=== PATIENT | male | born 1980 | race Caucasian/White ===

== ENCOUNTER 2020-12-18 17:23 | Emergency (ER) | payer SELFPAY ==
[2020-12-18] MEDS ORDERED: THIAMINE 200 MG/2 ML INJ ONE (20:45)
[2020-12-18] MEDS ORDERED: MULTIVITAMINS 10 ML VIAL (INJ) IV ONE (20:46)
[2020-12-18] MEDS ORDERED: FAMOTIDINE 20 MG/2 ML VIAL IV ONE (20:46)
[2020-12-18] MEDS ORDERED: NA CHLORIDE 0.9% 1,000 ML ONE (20:47)
[2020-12-18] MEDS ORDERED: FOLIC ACID 5 MG/ML VIAL ONE (20:47)
[2020-12-18 20:56] LABS: Absolute Lymphocytes (CBC) 1.8 K/uL (0.7-4.9); Basophils % 0.6 % (0-1.3); Hematocrit 47.2 % (39.6-49.0); Lymphocytes % 34.5 % (15.3-44.8); MPV 8.7 fL (7.6-11.3); RBC Red Blood Cell Count 5.03 M/uL (4.33-5.43)
--- NOTE | 2020-12-18 21:05 | RAD REPORT ---
EXAM DESCRIPTION: Syed Single View12/18/2020 8:54 pm CLINICAL HISTORY: cough COMPARISON: none FINDINGS: The lungs appear clear of acute infiltrate. The heart is normal size IMPRESSION: No acute abnormalities displayed
[2020-12-18 21:06] LABS: Protime INR 1.15
[2020-12-18] MEDS ORDERED: LORazepam 2 MG/ML VIAL ONE (21:19)
[2020-12-18 21:42] LABS: Albumin 3.7 g/dL (3.4-5.0); Alkaline Phosphatase 144 U/L (45-117); BUN Blood Urea Nitrogen 9 mg/dL (7-18); Bicarbonate 25 mmol/L (21-32); Bilirubin Direct 1.7 mg/dL (0-0.2); Bilirubin Total 2.4 mg/dL (0.2-1.0); Glucose Level 136 mg/dL (74-106); Lipase 523 U/L (73-393); NT PRO-BNP 20 pg/mL (<125); Sodium Level 135 mmol/L (136-145); Troponin (Emerg Dept Use Only) < 0.02 ng/mL (0.0-0.045)
[2020-12-18 21:45] LABS: Potassium 3.8 mmol/L (3.5-5.1)
[2020-12-18 21:46] LABS: ALT/SGPT 371 U/L (12-78); AST/SGOT 609 U/L (15-37)
[2020-12-18 21:47] LABS: Barbiturates NEGATIVE (NEGATIVE); Benzodiazepines NEGATIVE (NEGATIVE); Cocaine NEGATIVE (NEGATIVE); METHAMPHETAM NEGATIVE (NEGATIVE); Methadone NEGATIVE (NEGATIVE); Opiates NEGATIVE (NEGATIVE); Phencyclidine NEGATIVE (NEGATIVE); THC Cannibis NEGATIVE (NEGATIVE)
[2020-12-18 22:06] LABS: Urine Blood NEGATIVE (NEG); Urine Glucose NEGATIVE (NEG); Urine Protein NEGATIVE (NEG); Urine pH 7.5 (5.0-7.0)
--- NOTE | 2020-12-18 22:25 | ER ---
Nurse's Notes [facility] Name: Daphne Masters Age: 40 yrs Sex: Male : 1980 Arrival Date: 12/18/2020 Time: 17:25 Bed 23 Private MD: Diagnosis: Alcohol abuse counseling and surveillance;Alcohol abuse, uncomplicated;Alcohol abuse with intoxication;Alcoholic cirrhosis of liver Presentation: 12/18 17:47 Chief complaint: Patient states: Drinking heavier than usual for 2 months. Wants to get ll1 to a good rehab. + N/V. Last drink "2 [place]ball" at 8 am. Wants help, doing it himself isn't working. Coronavirus screen: Client denies travel out of the [place] in the last 14 days. At this time, the client does not indicate any symptoms associated with coronavirus-19. Ebola Screen: Patient denies travel to an Ebola-affected area in the 21 days before illness onset. Initial Sepsis Screen: Does the patient meet any 2 criteria? HR > 90 bpm. No. Patient's initial sepsis screen is negative. Does the patient have a suspected source of infection? Yes: Acute abdominal pain. Risk Assessment: Do you want to hurt yourself or someone else? Patient reports no desire to harm self or others. Onset of symptoms was December 18, 2020. 17:47 Method Of Arrival: Ambulatory ll1 17:47 Acuity: ESCOBAR 3 ll1 Historical: - Allergies: 17:50 No Known Allergies; ll1 - Home Meds: 22:19 Celexa 40 mg Oral tab 1 tab once daily [Active]; Vitamin B-1 (mononitrate) oral 250 mg sf tab oral 1 tab daily [Active]; milk thistle oral oral daily [Active]; multivitamin oral tab 1 tab daily [Active]; - PMHx: 17:50 Alcoholism; ll1 - PSHx: 17:50 None; ll1 - Immunization history:: Flu vaccine is not up to date. - Social history:: Smoking status: Patient denies any tobacco usage or history of. - Family history:: not pertinent. Screenin:20 Abuse screen: Denies threats or abuse. Denies injuries from another. Nutritional sf screening: No deficits noted. Tuberculosis screening: No symptoms or risk factors identified. Never had TB. Possible symptoms: None Risk factors: None. Fall Risk None identified. No fall in past 12 months (0 pts). No secondary diagnosis (0 pts). IV access (20 points). Ambulatory Aid- None/Bed Rest/Nurse Assist (0 pts). Gait- Normal/Bed Rest/Wheelchair (0 pts) Mental Status- Oriented to own ability (0 pts). Total Ulrich Fall Scale indicates No Risk (0-24 pts). Assessment: 20:20 General: Appears in no apparent distress. comfortable, Behavior is cooperative, sf anxious. Pain: Denies pain. Neuro: No deficits noted. Level of Consciousness is awake, alert, obeys commands, Oriented to person, place, time, situation, Appropriate for age CIWA-Ar: Nausea and Vomiting (5), Tremor (1), Paroxysmal Sweats (0), Tactile Disturbance (0), Auditory Disturbances (0), Visual Disturbances (0), Anxiety (3), Agitation (3), Headache (0), Orientation (0); TOTAL CIWA-Ar: 12. Cardiovascular: No deficits noted. Patient's skin is warm and dry. Rhythm is sinus rhythm. Respiratory: No deficits noted. Airway is patent Respiratory effort is even, unlabored, Respiratory pattern is regular, symmetrical. GI: Abdomen is non-distended, Abd is soft and non tender X 4 quads. Reports nausea, normal bowel habits, vomiting, Patient currently denies abdominal pain. : No signs and/or symptoms were reported regarding the genitourinary system. 22:14 Reassessment: Patient appears in no apparent distress at this time. Patient and/or sf family updated on plan of care and expected duration. Pain level reassessed. Patient is alert, oriented x 3, equal unlabored respirations, skin warm/dry/pink. CIWA-Ar: Nausea and Vomiting (1), Tremor (1), Paroxysmal Sweats (0), Tactile Disturbance (0), Auditory Disturbance (0), Visual Disturbance (0), Anxiety (1), Agitation (1), Headache (0), Orientation (0); TOTAL CIWA-Ar: 4 Patient denies pain at this time. Patient states feeling better. Patient states symptoms have improved. 23:08 Reassessment: Patient appears in no apparent distress at this time. Patient and/or sf family updated on plan of care and expected duration. Pain level reassessed. Patient is alert, oriented x 3, equal unlabored respirations, skin warm/dry/pink. Patient denies pain at this time. Vital Signs: 17:47 BP 130 / 89; Pulse 101; Resp 18; Temp 97.9; Pulse Ox 98% ; Weight 90.72 kg; Height 6 ll1 ft. 1 in. (185.42 cm); Pain 5/10; 20:43 BP 124 / 86; Pulse 79; Resp 18; Pulse Ox 98% ; sf 21:00 BP 129 / 84; Pulse 89; Resp 18; Pulse Ox 98% ; sf 21:30 BP 117 / 80; Pulse 81; Resp 16; Pulse Ox 98% ; sf 22:00 BP 108 / 76; Pulse 79; Resp 16; Pulse Ox 98% ; sf 22:30 BP 120 / 79; Pulse 75; Resp 16; Pulse Ox 99% ; sf 23:00 BP 112 / 81; Pulse 78; Resp 16; Pulse Ox 97% ; sf 23:30 BP 117 / 87; Pulse 83; Resp 16; Pulse Ox 96% ; sf 17:47 Body Mass Index 26.39 (90.72 kg, 185.42 cm) ll1 ED Course: 17:25 Patient arrived in ED. am2 17:50 Triage completed. ll1 17:51 Arm band placed on. ll1 19:29 Subhash Dumont, ERIC is Primary Nurse. 19:36 Renzo Javed MD is Attending Physician. martha 20:15 Initial lab(s) drawn, by va, sent to lab. Inserted saline lock: 20 gauge in right sf antecubital area, using aseptic technique. Blood collected. 20:20 Patient has correct armband on for positive identification. Bed in low position. Call light in reach. Side rails up X 1. hall monitor on. Pulse ox on. NIBP on. Door closed. Noise minimized. Visitors limited. Lights dimmed. Warm blanket given. Verbal reassurance given. 20:44 EKG done, by ED staff, reviewed by Renzo Javed MD. sf 20:49 X-ray(s) taken. sf 20:51 NT PRO-BNP Sent. sf 20:51 Magnesium Sent. sf 20:53 Acetaminophen Sent. sf 20:53 Basic Metabolic Panel Sent. sf 20:53 CBC with Diff Sent. sf 20:53 ETOH Level Sent. sf 20:53 Hepatic Function Sent. sf 20:53 PT-INR Sent. sf 20:53 Ptt, Activated Sent. sf 20:53 Salicylate Sent. sf 20:53 XRAY Chest (1 view) Sent. sf 22:24 Mary Hopkins MD is Referral Physician. [facility] 22:27 Urine Dipstick--Ancillary (enter results) Sent. sf 22:27 Urine Drug Screen Sent. sf 22:35 Initial lab(s) drawn, by va, sent to lab. sf 22:42 AMMONIA Sent. sf 23:58 No provider procedures requiring assistance completed. IV discontinued, intact, sf bleeding controlled, No redness/swelling at site. Pressure dressing applied. Administered Medications: 20:33 Drug: Thiamine 100 mg Route: IV; Rate: bolus; Site: right antecubital; sf 20:34 Follow up: IV Status: Completed infusion; IV Intake: 1ml sf 21:49 Follow up: Response: No adverse reaction sf 20:33 Drug: Pepcid 20 mg Route: IVP; Site: right antecubital; sf 21:48 Follow up: Response: No adverse reaction sf 20:34 Drug: Banana Bag - (NS 0.9% 1000 ml, foLIC Acid 1 mg, Thiamine 100 mg, Multivitamin 1 sf amp) Route: IV; Rate: 500 ml/hr; Site: right antecubital; 22:30 Follow up: IV Status: Completed infusion; IV Intake: 1000ml sf 22:35 Follow up: Response: No adverse reaction sf 21:05 Drug: Ativan 1 mg Route: IVP; Site: right antecubital; sf 22:14 Follow up: Response: No adverse reaction; Anxiety decreased sf Intake: 20:34 IV: 1ml; Total: 1ml. sf 22:30 IV: 1000ml; Total: 1001ml. sf Outcome: 22:25 Discharge ordered by . [facility] 23:58 Discharged to home ambulatory. sf 23:58 Condition: stable 23:58 Discharge instructions given to patient, Instructed on discharge instructions, follow up and referral plans. no drinking with medication, medication usage, safety practices, Demonstrated understanding of instructions, follow-up care, medications, Prescriptions given X 3. 03/04 00:08 Patient left the ED. sf Signatures: Renzo Javed MD MD cha Moreno, Amanda am2 Ham Norris RN RN ll1 Subhash Dumont RN RN sf Corrections: (The following items were deleted from the chart) 12/18 22:27 22:14 Reassessment: Patient appears in no apparent distress at this time. Patient sf and/or family updated on plan of care and expected duration. Pain level reassessed. Patient is alert, oriented x 3, equal unlabored respirations, skin warm/dry/pink. CIWA-Ar: Nausea and Vomiting (1), Tremor (1), Paroxysmal Sweats (0), Tactile Disturbance (0), Auditory Disturbance (0), Visual Disturbance (0), Anxiety (1), Agitation (1), Headache (0), Orientation (0); TOTAL CIWA-Ar: 4 23: 20:50 NT PRO-BNP drawn and sent. EDMS 23: 20:50 Magnesium drawn and sent. EDMS 23: 20:51 LIPASE+C.LAB.BRZ drawn and sent. EDMS 23: 20:51 TROPONIN (EMERG DEPT USE ONLY)+C.LAB.BRZ drawn and sent. EDMS
--- NOTE | 2020-12-18 22:25 | EDPHYS ---
Physician Documentation [facility] Name: Daphne Masters Age: 40 yrs Sex: Male : 1980 Arrival Date: 12/18/2020 Time: 17:25 Bed 23 Private MD: ED Physician Renzo Javed HPI: 12/18 20:17 This 40 yrs old Male presents to ER via Ambulatory with complaints of Alcohol martha Withdrawal. 20:17 The patient presents to the emergency department with anxiety, a history of substance martha abuse, Type: beer, 12 bottles per day. Onset: The symptoms/episode began/occurred 3 day(s) ago. Past psychiatric history: Prior diagnosis: depression. weakness. Associated signs and symptoms: Pertinent positives; anxiety, nausea, vomiting. Severity of symptoms: At their worst the symptoms were moderate in the emergency department the symptoms are unchanged. The patient has experienced similar episodes in the past, several times. Historical: - Allergies: 17:50 No Known Allergies; ll1 - Home Meds: 22:19 Celexa 40 mg Oral tab 1 tab once daily [Active]; Vitamin B-1 (mononitrate) oral 250 mg sf tab oral 1 tab daily [Active]; milk thistle oral oral daily [Active]; multivitamin oral tab 1 tab daily [Active]; - PMHx: 17:50 Alcoholism; ll1 - PSHx: 17:50 None; ll1 - Immunization history:: Flu vaccine is not up to date. - Social history:: Smoking status: Patient denies any tobacco usage or history of. - Family history:: not pertinent. ROS: 20:17 Constitutional: Negative for fever, chills, and weight loss, Eyes: Negative for injury, martha pain, redness, and discharge, ENT: Negative for injury, pain, and discharge, Neck: Negative for injury, pain, and swelling, Cardiovascular: Negative for chest pain, palpitations, and edema, Respiratory: Negative for shortness of breath, cough, wheezing, and pleuritic chest pain, Abdomen/GI: Negative for abdominal pain, nausea, vomiting, diarrhea, and constipation, : Negative for injury, bleeding, discharge, and swelling, MS/Extremity: Negative for injury and deformity, Skin: Negative for injury, rash, and discoloration, Psych: Negative for depression, anxiety, suicide ideation, homicidal ideation, and hallucinations, Allergy/Immunology: Negative for hives, rash, and allergies, Endocrine: Negative for neck swelling, polydipsia, polyuria, polyphagia, and marked weight changes, Hematologic/Lymphatic: Negative for swollen nodes, abnormal bleeding, and unusual bruising. 20:17 Back: Positive for pain at rest. Exam: 20:17 Constitutional: This is a well developed, well nourished patient who is awake, alert, martha and in no acute distress. Head/Face: Normocephalic, atraumatic. Eyes: Pupils equal round and reactive to light, extra-ocular motions intact. Lids and lashes normal. Conjunctiva and sclera are non-icteric and not injected. Cornea within normal limits. Periorbital areas with no swelling, redness, or edema. ENT: Nares patent. No nasal discharge, no septal abnormalities noted. Tympanic membranes are normal and external auditory canals are clear. Oropharynx with no redness, swelling, or masses, exudates, or evidence of obstruction, uvula midline. Mucous membranes moist. Neck: Trachea midline, no thyromegaly or masses palpated, and no cervical lymphadenopathy. Supple, full range of motion without nuchal rigidity, or vertebral point tenderness. No Meningismus. Chest/axilla: Normal chest wall appearance and motion. Nontender with no deformity. No lesions are appreciated. Cardiovascular: Regular rate and rhythm with a normal S1 and S2. No gallops, murmurs, or rubs. Normal PMI, no JVD. No pulse deficits. Respiratory: Lungs have equal breath sounds bilaterally, clear to auscultation and percussion. No rales, rhonchi or wheezes noted. No increased work of breathing, no retractions or nasal flaring. Abdomen/GI: Soft, non-tender, with normal bowel sounds. No distension or tympany. No guarding or rebound. No evidence of tenderness throughout. Back: No spinal tenderness. No costovertebral tenderness. Full range of motion. Male : Normal genitalia with no discharge or lesions. Skin: Warm, dry with normal turgor. Normal color with no rashes, no lesions, and no evidence of cellulitis. MS/ Extremity: Pulses equal, no cyanosis. Neurovascular intact. Full, normal range of motion. Neuro: Awake and alert, GCS 15, oriented to person, place, time, and situation. Cranial nerves II-XII grossly intact. Motor strength 5/5 in all extremities. Sensory grossly intact. Cerebellar exam normal. Normal gait. Psych: Awake, alert, with orientation to person, place and time. Behavior, mood, and affect are within normal limits. 20:51 ECG was reviewed by the Attending Physician. [facility] Vital Signs: 17:47 BP 130 / 89; Pulse 101; Resp 18; Temp 97.9; Pulse Ox 98% ; Weight 90.72 kg; Height 6 ll1 ft. 1 in. (185.42 cm); Pain 5/10; 20:43 BP 124 / 86; Pulse 79; Resp 18; Pulse Ox 98% ; sf 21:00 BP 129 / 84; Pulse 89; Resp 18; Pulse Ox 98% ; sf 21:30 BP 117 / 80; Pulse 81; Resp 16; Pulse Ox 98% ; sf 22:00 BP 108 / 76; Pulse 79; Resp 16; Pulse Ox 98% ; sf 22:30 BP 120 / 79; Pulse 75; Resp 16; Pulse Ox 99% ; sf 23:00 BP 112 / 81; Pulse 78; Resp 16; Pulse Ox 97% ; sf 23:30 BP 117 / 87; Pulse 83; Resp 16; Pulse Ox 96% ; sf 17:47 Body Mass Index 26.39 (90.72 kg, 185.42 cm) ll1 MDM: 19:36 Patient medically screened. martha 20:19 Differential diagnosis: drug withdrawal. acute psychotic break, depression. martha Differential Diagnosis altered mental status. Data reviewed: vital signs, nurses notes, lab test result(s), EKG, radiologic studies, CT scan, plain films. Data interpreted: social media project manager: rate is 101 beats/min, rhythm is regular, Pulse oximetry: on room air is 98 %. Test interpretation: by ED physician or midlevel provider: ECG, plain radiologic studies. Counseling: I had a detailed discussion with the patient and/or guardian regarding: the historical points, exam findings, and any diagnostic results supporting the discharge/admit diagnosis, the presence of at least one elevated blood pressure reading (>120/80) during this emergency department visit, lab results, radiology results. 12/18 19:39 Order name: Acetaminophen [facility] 12/18 19:39 Order name: Basic Metabolic Panel [facility] 12/18 19:39 Order name: CBC with Diff [facility] 12/18 19:39 Order name: ETOH Level [facility] 12/18 19:39 Order name: Hepatic Function [facility] 12/18 19:39 Order name: PT-INR [facility] 12/18 19:39 Order name: Ptt, Activated [facility] 12/18 19:39 Order name: Salicylate [facility] 12/18 19:39 Order name: Urine Drug Screen [facility] 12/18 20:16 Order name: Magnesium [facility] 12/18 20:16 Order name: NT PRO-BNP [facility] 12/18 21:08 Order name: CBC with Automated Diff; Complete Time: 21:27 EDMS 12/18 21:09 Order name: Protime (+INR); Complete Time: 21:27 EDMS 12/18 21:09 Order name: PTT, Activated Partial Thromb; Complete Time: 21:27 EDMS 12/18 21:22 Order name: Salicylates Level; Complete Time: 21:27 EDMS 12/18 21:35 Order name: Urine Dipstick--Ancillary (enter results) [facility] 12/18 21:41 Order name: Alcohol Serum/Plasma; Complete Time: 22:07 EDNV 12/18 21:47 Order name: Basic Metabolic Panel; Complete Time: 22:07 EDMS 12/18 21:47 Order name: Liver (Hepatic) Function; Complete Time: 22:07 EDMS 12/18 21:47 Order name: Troponin (Emerg Dept Use Only); Complete Time: 22:07 [facility]NV 12/18 21:47 Order name: Urine Drug Screen; Complete Time: 22:07 [facility] 12/18 22:07 Order name: Urine Dipstick-Ancillary; Complete Time: 22:24 [facility] 12/18 22:25 Order name: AMMONIA [facility] 12/18 23:26 Order name: Troponin (Emerg Dept Use Only) [facility] 12/18 23:26 Order name: NT PRO-BNP [facility] 12/18 23:26 Order name: Magnesium [facility] 12/18 19:39 Order name: EKG; Complete Time: 19:40 [facility] 12/18 19:39 Order name: EKG - Nurse/Tech; Complete Time: 20:51 [facility] 12/18 19:39 Order name: IV Saline Lock; Complete Time: 20:52 [facility] 12/18 19:39 Order name: Labs collected and sent; Complete Time: 20:52 [facility] 12/18 19:39 Order name: Urine Dipstick-Ancillary (obtain specimen); Complete Time: 21:35 [facility] 12/18 20:16 Order name: XRAY Chest (1 view); Complete Time: 21:27 [facility] 12/18 20:16 Order name: Cardiac monitoring; Complete Time: 20:51 [facility] 12/18 20:16 Order name: O2 Per Protocol; Complete Time: 20:51 [facility] 12/18 20:16 Order name: O2 Sat Monitoring; Complete Time: 20:51 martha 12/18 21:05 Order name: RAD; Complete Time: 21:27 EDMS 12/18 23:26 Order name: Lipase EDMS EC: Rate is 82 beats/min. Rhythm is regular. QRS [place] is Normal. CO interval is normal. QRS martha interval is normal. QT interval is normal. No Q waves. T waves are Normal. No ST changes noted. Clinical impression: NSR w/ Non-specific ST/T Changes and No evidence of ischemia. Interpreted by me. Reviewed by me. Administered Medications: 20:33 Drug: Thiamine 100 mg Route: IV; Rate: bolus; Site: right antecubital; sf 20:34 Follow up: IV Status: Completed infusion; IV Intake: 1ml sf 21:49 Follow up: Response: No adverse reaction sf 20:33 Drug: Pepcid 20 mg Route: IVP; Site: right antecubital; sf 21:48 Follow up: Response: No adverse reaction sf 20:34 Drug: Banana Bag - (NS 0.9% 1000 ml, foLIC Acid 1 mg, Thiamine 100 mg, Multivitamin 1 sf amp) Route: IV; Rate: 500 ml/hr; Site: right antecubital; 22:30 Follow up: IV Status: Completed infusion; IV Intake: 1000ml sf 22:35 Follow up: Response: No adverse reaction sf 21:05 Drug: Ativan 1 mg Route: IVP; Site: right antecubital; sf 22:14 Follow up: Response: No adverse reaction; Anxiety decreased sf Disposition: 12/18/20 22:25 Discharged to Home. Impression: Alcohol abuse counseling and surveillance, Alcohol abuse, uncomplicated, Alcohol abuse with intoxication, Alcoholic cirrhosis of liver. - Condition is Stable. - Discharge Instructions: Alcohol Intoxication, Alcohol Withdrawal, Alcohol Use Disorder, Substance Use Disorder, Alcohol Intoxication, [id number], Alcohol Abuse and Nutrition, Alcohol Withdrawal, [id number], Alcoholic Liver Disease, [id number]-Cwpr, Alcoholic Hepatitis, Alcoholic Liver Disease. - Prescriptions for M.V.I. Adult - take 1 tablet by ORAL route once daily; 30 tablet. chlordiazepoxide HCl 25 mg Oral capsule - take 1 capsule by ORAL route 3 times per day; 21 capsule. Pepcid 20 mg Oral Tablet - take 1 tablet by ORAL route every 12 hours for 10 days; 20 tablet. - Medication Reconciliation Form, Thank You Letter, Antibiotic Education, Prescription Opioid Use form. - Follow up: Private Physician; When: 2 - 3 days; Reason: Recheck today's complaints, Continuance of care, Re-evaluation by your physician. Follow up: Mary Hopkins; When: 2 - 3 days; Reason: Recheck today's complaints, Continuance of care, Re-evaluation by your physician. - Problem is new. - Symptoms have improved. Signatures: Dispatcher [employer] EDNV Renzo Javed MD MD cha Lewis, Lynsay, RN RN 1 Subhash Dumont RN RN sf Corrections: (The following items were deleted from the chart) 23:26 20:17 Magnesium ordered. [facility] 23:26 20:17 NT PRO-BNP ordered. [facility] 23:26 20:17 TROPONIN (EMERG DEPT USE ONLY)+C.LAB.BRZ ordered. [facility] 23:26 20:17 LIPASE+C.LAB.BRZ ordered. [facility] 12/19 00:08 12/18 22:25 12/18/2020 22:25 Discharged to Home. Impression: Alcohol abuse counseling sf and surveillance; Alcohol abuse, uncomplicated; Alcohol abuse with intoxication; Alcoholic cirrhosis of liver. Condition is Stable. Discharge Instructions: Alcohol Use Disorder, Substance Use Disorder, Alcohol Abuse and Nutrition. Prescriptions for M.V.I. Adult - take 1 tablet by ORAL route once daily; 30 tablet, chlordiazepoxide HCl 25 mg Oral capsule - take 1 capsule by ORAL route 3 times per day; 21 capsule, Pepcid 20 mg Oral Tablet - take 1 tablet by ORAL route every 12 hours for 10 days; 20 tablet. and Forms are Medication Reconciliation Form, Thank You Letter, Antibiotic Education, Prescription Opioid Use. Follow up: Private Physician; When: 2 - 3 days; Reason: Recheck today's complaints, Continuance of care, Re-evaluation by your physician. Follow up: Mary Hopkins; When: 2 - 3 days; Reason: Recheck today's complaints, Continuance of care, Re-evaluation by your physician. Problem is new. Symptoms have improved. martha
[2020-12-19 10:32] VITALS: BP 117/87; TEMP 97.9; O2SAT 96
== END 2020-12-19 00:08 | disposition home or self-care (01) ==
LOC: ER 17:23
DX: F10.229 Alcohol dependence with intoxication, unspecified (principal); K70.30 Alcoholic cirrhosis of liver without ascites; Y90.8 Blood alcohol level of 240 mg/100 ml or more
CPT/HCPCS: 36415; 71045; 80048; 80076; 80307; 80320; 80329; 81003; 82140; 83690; 83735; 83880; 84484; 85025; 85610; 85730; 93005; 96365; 96366; 96375; 99285; J3411; J7030